=== PATIENT | male | born 1970 | race Caucasian/White ===

== ENCOUNTER 2020-07-05 07:35 | Day surgery (SDC) | payer BC ==
[~2020-07-05] VITALS: Ht 185.4 cm; Wt 125.7 kg
[2020-07-05] VITALS (13 sets, daily range): BP systolic 114–146; BP diastolic 70–85
[2020-07-05] MEDS ORDERED: normal saline 1,000 ML IV SCH (08:00)
[2020-07-05] MEDS ORDERED: nitroGLYCERIN 0.4mg SUBLingual tab SL PRN (08:00)
[2020-07-05] MEDS ORDERED: LORazepam 0.5 MG tablet PO PRN (08:00)
[2020-07-05] MEDS ORDERED: diphenhydrAMINE 25mg capsule PO PRN (08:00)
[2020-07-05] MEDS ORDERED: NIAC500C3 PO (08:14)
[2020-07-05] MEDS ORDERED: SERT-433 PO (08:14)
[2020-07-05] MEDS ORDERED: [UNRECOGNIZED DRUG - CODE] PO (08:14)
[2020-07-05] MEDS ORDERED: ASPI-1265 PO (08:14)
[2020-07-05] MEDS ORDERED: MV-M1TAB19 PO (08:14)
[2020-07-05] MEDS ORDERED: MULT-1085 PO (08:14)
[2020-07-05] MEDS ORDERED: ALPR0.255 PO (08:14)
[2020-07-05] MEDS ORDERED: CALCIUM MAG ZINC PO (08:14)
[2020-07-05] MEDS ORDERED: ZOLP10TA PO (08:14)
[2020-07-05] MEDS ORDERED: LIDOcaine 1% (10mg/ml)w/preservative injection 20ml MDV ONE (09:04)
[2020-07-05] MEDS ORDERED: fentaNYL/PF 50MCG/1 ML 2ML syringe ONE ×2 (09:04→09:43)
[2020-07-05] MEDS ORDERED: midazolam 1 mg/ML 2ml injection ONE ×2 (09:04→09:43)
[2020-07-05] MEDS ORDERED: iohexol 350MG/ML 100ml bottle IV ONE (09:04)
[2020-07-05 09:05] LABS: TROPONIN I < 0.04 NG/ML (0.0-0.05)
[2020-07-05] MEDS ORDERED: iohexol 350 MG/ML 50ML vial IV ONE (09:05)
[2020-07-05] MEDS ORDERED: proCHLORperazine 10 MG/2 ml inj ONE (09:43)
--- NOTE | 2020-07-05 11:15 | NUR ---
Pt ate 50% of breakfast tray
== END 2020-07-05 17:35 | disposition home or self-care (01) ==
LOC: SSTAY O 07:35
PROVIDERS: ATTEND Internal Medicine Cardiovascular Disease
DX: R94.39 Abnormal result of other cardiovascular function study (principal); R06.02 Shortness of breath; I25.119 Atherosclerotic heart disease of native coronary artery with unspecified angina pectoris; M19.90 Unspecified osteoarthritis, unspecified site; G47.33 Obstructive sleep apnea (adult) (pediatric); I10 Essential (primary) hypertension; E78.5 Hyperlipidemia, unspecified; J44.9 Chronic obstructive pulmonary disease, unspecified; E66.01 Morbid (severe) obesity due to excess calories; Z68.35 Body mass index [BMI] 35.0-35.9, adult; Z72.89 Other problems related to lifestyle; Z96.641 Presence of right artificial hip joint; Z79.899 Other long term (current) drug therapy; Z82.49 Family history of ischemic heart disease and other diseases of the circulatory system
CPT/HCPCS: 36415; 83880; 84484; 93458; 99152; C1760; C1769; J0780; J1644; J2001; J2250; J3010; J7030; Q0163; Q9967; 99153; A4620; A6258